=== PATIENT | male | born 1995 | race African-American/Black ===

== ENCOUNTER 2016-12-24 17:14 | Emergency (ER) | payer SELFPAY ==
[2016-12-24 19:50] VITALS: BP 139/56
--- NOTE | 2016-12-24 20:25 | RAD ---
INDICATION: Nasal bone injury COMPARISON: None TECHNIQUE: Routine 3 view imaging was performed. FINDINGS: The anterior nasal bones and the nasal process of the maxilla are intact. The visualized paranasal sinuses are clear. There is soft tissue swelling of the nasal bridge. IMPRESSION: NO ACUTE AREAS OF BONE FRACTURE.
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
== END 2016-12-24 20:53 | disposition home or self-care (01) ==
LOC: ED 17:14
DX: S00.33XA Contusion of nose, initial encounter (principal); Y04.0XXA Assault by unarmed brawl or fight, initial encounter; Y92.9 Unspecified place or not applicable
CPT/HCPCS: 70160; 99282

== ENCOUNTER 2017-06-18 02:18 | Emergency (ER) | payer SELFPAY ==
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
[2017-06-18 06:45] VITALS: BP 104/64
--- NOTE | 2017-06-18 08:05 | RAD ---
HISTORY: Head injury COMPARISONS: None TECHNIQUE: Multiple contiguous axial CT scans were obtained of the head without intravenous contrast. FINDINGS: HEMORRHAGE/INFARCT: There is no hemorrhage or acute infarct. MASSES/SHIFT: There is no mass or shift. EXTRA-AXIAL SPACES: There are no extra-axial fluid collections. SULCI AND VENTRICLES: The sulci and ventricles are normal in size and position for the patient's stated age. CEREBRUM: There are no focal parenchymal abnormalities. BRAINSTEM: There are no focal parenchymal abnormalities. CEREBELLUM: There are no focal parenchymal abnormalities. VESSELS: The vessels are grossly normal. PARANASAL SINUSES: The paranasal sinuses are clear. ORBITS: The orbits are unremarkable. BONES AND SOFT TISSUE: No bone or soft tissue abnormalities are noted. OTHER: None IMPRESSION: NO ACUTE INTRACRANIAL PATHOLOGY.
== END 2017-06-18 06:40 | disposition home or self-care (01) ==
LOC: ED 02:18 → MERGE 02:18 → ED 06:40
DX: S00.91XA Abrasion of unspecified part of head, initial encounter (principal); S06.9X1A Unspecified intracranial injury with loss of consciousness of 30 minutes or less, initial encounter; R51 Headache; Y09 Assault by unspecified means; Y92.89 Other specified places as the place of occurrence of the external cause; F17.210 Nicotine dependence, cigarettes, uncomplicated; R41.82 Altered mental status, unspecified
CPT/HCPCS: 70450; 99282

== ENCOUNTER 2018-06-25 16:43 | Emergency (ER) | payer BC, OTHER ==
[2018-06-25] MEDS ORDERED: Ondansetron INJ* 2 MG/ML VIAL IV ONE (17:34)
[2018-06-25] MEDS ORDERED: Piperacillin/Tazobac ADVAN(*) 3.375 GM in NS 0.9% 100 ML* 100 ML IVPB ONE (17:34)
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
[2018-06-25 18:26] LABS: ABS Basophils 0.1 10^3/ul (0-0.2); ABS Eosinophils 0 10^3/ul (0-0.6); ABS Lymphocytes 2.1 10^3/ul (1.0-4.8); ABS Monocytes 0.3 10^3/ul (0-0.8); ABS Neutrophils 2.1 10^3/ul (1.5-7.7); ABS Nucleated RBC 0 10^3/ul; Eosinophil % 0.3 %; Hematocrit 45 % (36-46); Hemoglobin 15.3 g/dL (14.0-18.0); Lymphocyte % 45.8 %; Mean Corpuscular HGB Conc 34 g/dL (31-36); Mean Corpuscular Hemoglobin 30 pg (27-31); Mean Corpuscular Volume 89 fL (80-94); Mean Platelet Volume 7.1 fL (7.4-10.4); Nucleated Red Blood Cells % 0.1; Platelet Count 407 10^3/uL (150-450); Red Blood Count 5.04 10^6 /uL (4.18-5.48); Red Cell Distribution Width 13 % (10.5-15); White Blood Count 4.5 10^3/uL (3.5-10.8)
[2018-06-25] MEDS ORDERED: NS 0.9% 1000 ML** 1,000 ML IV ONE (18:31)
[2018-06-25 18:32] LABS: Urine Appearance Clear; Urine Bilirubin Negative (Negative); Urine Blood Negative (Negative); Urine Color Straw; Urine Glucose Negative (Negative); Urine Ketones Negative (Negative); Urine Nitrite Negative (Negative); Urine Protein Negative (Negative); Urine Specific Gravity 1.004 (1.010-1.030); Urine Urobilinogen Negative (Negative)
[2018-06-25 18:42] LABS: Acetaminophen < 15 mcg/mL; Alcohol 317 mg/dL (<10)
[2018-06-25 18:43] LABS: ALT 16 U/L (7-52); AST 16 U/L (13-39); Albumin 4.7 g/dL (3.2-5.2); Albumin/Globulin Ratio 1.6 (1-3); Alkaline Phosphatase 51 U/L (34-104); Anion Gap 11 mmol/L (2-11); BUN/Creatinine Ratio 16.3 (8-20); Blood Urea Nitrogen 13 mg/dL (6-24); CO2 Carbon Dioxide 25 mmol/L (22-32); Chloride 103 mmol/L (101-111); Creatine Kinase 228 U/L (10-223); EGFR African American 147.7 (>60); Glucose 96 mg/dL (70-100); Potassium 3.9 mmol/L (3.5-5.0); Sodium 139 mmol/L (135-145); Total Protein 7.7 g/dL (6.4-8.9)
[2018-06-25 18:46] LABS: Barbiturates Urine Screen None Detected (None Detect); Benzodiazepine Urine Screen None Detected (None Detect); Urine Cannabinoids Screen Presumptive Positive (None Detect)
--- NOTE | 2018-06-26 03:14 | ED ---
Progress - Progress Note Progress Note: Patient was signed out from Dr. Shea upon shift change pending sobering and disposition. Re-Evaluation - Re-Evaluation first Re-Evaluation Time: 18:00 Change: Improved - Patient is alert and orientedx3. Vital signs improved. C- spine palpated without tenderness. Course/Dx - Course Course Of Treatment: Patient was signed out from Dr. Shea upon shift change pending sobering and disposition. Patient will be discharged home with follow up from PCP. Patient is agreeable with this plan. - Diagnoses Provider Diagnoses: Alcohol intoxication Discharge - Sign-Out/Discharge Documenting (check all that apply): Patient Departure - Discharge home Patient Received Moderate/Deep Sedation with Procedure: No - Discharge Plan Condition: Stable Disposition: HOME Patient Education Materials: Alcohol Intoxication (ED) Referrals: [facility] [place] [facility] [place]Outside] Additional Instructions: RETURN TO THE EMERGENCY DEPARTMENT FOR NEW OR WORSENING SYMPTOMS - Attestation Statements Document Initiated by Scribe: Yes Documenting Scribe: Sonal Taylor Provider For Whom Scribe is Documenting (Include Credential): Dr. Alfred Morgan MD Scribe Attestation: Sonal Lin, scribed for Dr. Alfred Morgan MD on 06/26/18 at 0314. Status of Scribe Document: Ready
[2018-06-26 03:27] VITALS: BP 121/72
== END 2018-06-26 03:25 | disposition home or self-care (01) ==
LOC: ED 16:43
DX: F10.129 Alcohol abuse with intoxication, unspecified (principal); F17.210 Nicotine dependence, cigarettes, uncomplicated; R11.10 Vomiting, unspecified
CPT/HCPCS: 36415; 70450; 71045; 80053; 80307; 80320; 80329; 81003; 82550; 83605; 84484; 85025; 93005; 96374; 99284; G0480; J2405; J2543